=== PATIENT | female | born 1990 | race Two or more races ===

== ENCOUNTER 2020-01-05 06:00 | Outpatient (CLI) | payer OTHER | END 2020-01-13 06:00 | disposition home or self-care (01) | LOC: LAB 06:00 → CIR.AMB 01-15 09:59 → EDSTATUS 01-15 10:32 → LAB 01-15 18:13 → CIR.AMB 01-15 18:30 | DX: N62 Hypertrophy of breast (principal) ==

== ENCOUNTER 2020-03-04 08:49 | Day surgery (SDC) | payer OTHER | END 2020-03-04 18:05 | disposition home or self-care (01) | LOC: CIR.AMB 08:49 | DX: N62 Hypertrophy of breast (principal) ==